=== PATIENT | male | born 1995 | race Hispanic/Latino ===

== ENCOUNTER 2016-12-27 17:36 | Emergency (ER) | payer BC ==
[2016-12-27 17:54] VITALS: BP 166/85; PULSE 65; RESP 20; TEMP 98; O2SAT 99
--- NOTE | 2016-12-27 19:08 | C.PDOC ---
History Of Present Illness Patient complains of noticing redness and blood to the tip of his penis 2 hours ago when urinating. He denies any injury, dysuria, penile discharge, testicle pain or swelling. He is unsure if he cut the area. Denies pain. He is sexually active but denies recent or any history of STI. Time Seen by Provider: 12/27/16 19:02 Chief Complaint (Nursing): Abnormal Skin Integrity History Per: Patient History/Exam Limitations: no limitations Onset/Duration Of Symptoms: Hrs (2 hours ago) Current Symptoms Are (Timing): Still Present Severity: None Pain Scale Rating Of: 0 Associated Symptoms: Other Alleviating Factors: None Recent travel outside of the [place]: No Past Medical History Reviewed: Historical Data, Nursing Documentation, Vital Signs Vital Signs: Last Vital Signs Temp 98.0 F 12/27/16 17:53 Pulse 65 12/27/16 17:53 Resp 20 12/27/16 17:53 BP 166/85 H 12/27/16 17:53 Pulse Ox 99 12/27/16 20:03 Family History: States: Unknown Family Hx - Social History Hx Alcohol Use: Yes Hx Substance Use: No - Immunization History Hx Tetanus Toxoid Vaccination: Yes Hx Influenza Vaccination: No Hx Pneumococcal Vaccination: No Review Of Systems Except As Marked, All Systems Reviewed And Found Negative. Genitourinary: Positive for: Other (redness and blood to the tip of the penis). Negative for: Dysuria, Penile Discharge, Scrotal Pain, Penile Pain Physical Exam - Physical Exam Appears: Non-toxic, No Acute Distress Skin: Warm, Dry Head: Atraumatic, Normacephalic Eye(s): bilateral: Normal Inspection Neck: Normal ROM Cardiovascular: Rhythm Regular Respiratory: No Accessory Muscle Use Gastrointestinal/Abdominal: Soft, No Tenderness Male Genital: No Testicular Tenderness, No Testicular Swelling, No Inguinal Tenderness, No Scrotal Swelling, Circumcised, Other (superficial 2mm abrasion with erythema to penile head near frenulum, no bleeding. No discharge, no vesicles or rash.) Extremity: Normal ROM Neurological/Psych: Oriented x3, Normal Speech Gait: Steady ED Course And Treatment O2 Sat by Pulse Oximetry: 99 (RA) Pulse Ox Interpretation: Normal Medical Decision Making Medical Decision Making: Impression:21 y.o male with abrasion to penile head near frenulum, no active bleeding. Plan: * Chlamydia/GC RNA * Urine culture * Urinalysis * Reassess and disposition Progress: RN Elian was at bedside during examination. Will send urine culture to test for STI, however patient asymptomatic at this time, thus will await results. Disposition Counseled Patient/Family Regarding: Diagnosis, Need For Followup - Disposition Referrals: [facility] [Outside] [facility] [Outside] Disposition: HOME/ ROUTINE Disposition Time: 19:08 Condition: STABLE Additional Instructions: You may apply antibiotic ointment to area Urine culture was sent to lab and will take 2-3 days for results Please contact lab for results or we will contact with any positive results You may call [facility] for any assistance [phone]. Return to ER for any worsening symptoms Instructions: Abrasion (ED) - POA Present On Arrival: None - Clinical Impression Clinical Impression: Abrasion of penis - PA / RESEARCH PHYSIOLOGIST / Resident Statement MD/DO has reviewed & agrees with the documentation as recorded. - Scribe Statement The provider has reviewed the documentation as recorded by the Scribe Clarissa Fajardo All medical record entries made by the Scribe were at my direction and personally dictated by me. I have reviewed the chart and agree that the record accurately reflects my personal performance of the history, physical exam, medical decision making, and the department course for this patient. I have also personally directed, reviewed, and agree with the discharge instructions and disposition.
[2016-12-27 19:26] LABS: RBC URINE < 1 /hpf (0-3); URINE BILIRUBIN NEGATIVE (NEGATIVE); URINE BLOOD NEGATIVE (NEGATIVE); URINE COLOR Yellow (YELLOW); URINE GLUCOSE (UA) NORMAL (Normal); URINE KETONE NEGATIVE (NEGATIVE); URINE LEUKOCYTE ESTERASE NEG Leu/uL (Negative); URINE PROTEIN NEGATIVE (NEGATIVE); URINE UROBILINOGEN NORMAL mg/dL (0.2-1.0); WBC URINE < 1 /hpf (0-5)
== END 2016-12-27 19:05 | disposition home or self-care (01) ==
LOC: C.ER 17:36
DX: S30.812A Abrasion of penis, initial encounter (principal); X58.XXXA Exposure to other specified factors, initial encounter

== ENCOUNTER 2017-01-11 21:30 | Emergency (ER) | payer BC ==
[2017-01-11 21:43] VITALS: BP 133/84; PULSE 73; TEMP 97.9; O2SAT 100
--- NOTE | 2017-01-11 22:40 | C.PDOC ---
History Of Present Illness 21 year old patient presents to the ED complaining of a possible penile abrasion. Patient was seen here on 12/27/16 for the same complaint. Patient states he "doesn't feel like its healing well." Patient is worried and requests to be evaluated. Patient denies any penile discharge, penile pain, scrotal pain , fever, chills, or any urinary symptoms. Time Seen by Provider: 01/11/17 22:30 Chief Complaint (Nursing): Abnormal Skin Integrity History Per: Patient History/Exam Limitations: no limitations Onset/Duration Of Symptoms: Other (2 weeks) Current Symptoms Are (Timing): Still Present Quality Of Symptoms: Other Severity: Mild Pain Scale Rating Of: 3 Recent travel outside of the [place]: No Past Medical History Reviewed: Historical Data, Nursing Documentation, Vital Signs Vital Signs: Last Vital Signs Temp 97.9 F 01/11/17 21:40 Pulse 73 01/11/17 21:40 Resp 20 01/11/17 22:47 BP 133/84 01/11/17 21:40 Pulse Ox 100 01/12/17 00:18 Family History: States: Unknown Family Hx - Social History Hx Alcohol Use: Yes Hx Substance Use: No - Immunization History Hx Tetanus Toxoid Vaccination: Yes Hx Influenza Vaccination: No Hx Pneumococcal Vaccination: No Review Of Systems Except As Marked, All Systems Reviewed And Found Negative. Constitutional: Negative for: Fever, Chills Genitourinary: Negative for: Dysuria, Hematuria, Penile Discharge, Scrotal Pain , Penile Pain Skin: Positive for: Other (not well healing abrasion to penis) Physical Exam - Physical Exam Appears: Non-toxic, No Acute Distress Skin: Warm, Dry Cardiovascular: Rhythm Regular Respiratory: Normal Breath Sounds, No Rales, No Rhonchi, No Wheezing Gastrointestinal/Abdominal: Soft, No Tenderness Male Genital: Normal Inspection, No Testicular Tenderness, No Testicular Swelling, No Inguinal Tenderness, No Inguinal Swelling, No Scrotal Swelling, Circumcised, No Other (sores, lesions, open wounds, vesicular lesions, discharge to penis) ED Course And Treatment O2 Sat by Pulse Oximetry: 100 (room air) Pulse Ox Interpretation: Normal Progress Note: Patient is advised to follow up with the clinic or PMD for STD screening. Patient is also educated on safe sex. Disposition Counseled Patient/Family Regarding: Diagnosis, Need For Followup, Rx Given - Disposition Referrals: Trent Carrasquillo MD [Medical Doctor] - Disposition: HOME/ ROUTINE Disposition Time: 22:40 Condition: STABLE Additional Instructions: Please follow up with PMD Return to ER if worse Forms: General Discharge Instructions - Clinical Impression Clinical Impression: Encounter for medical assessment - PA / CYBER DEFENSE FORENSICS ANALYST / Resident Statement MD/DO has reviewed & agrees with the documentation as recorded. - Scribe Statement The provider has reviewed the documentation as recorded by the Scribe Clarissa Fajardo All medical record entries made by the Scribe were at my direction and personally dictated by me. I have reviewed the chart and agree that the record accurately reflects my personal performance of the history, physical exam, medical decision making, and the department course for this patient. I have also personally directed, reviewed, and agree with the discharge instructions and disposition.
[2017-01-11 22:47] VITALS: RESP 20
== END 2017-01-11 22:47 | disposition home or self-care (01) ==
LOC: C.ER 21:30
DX: Z09 Encounter for follow-up examination after completed treatment for conditions other than malignant neoplasm (principal)